=== PATIENT | female | born 1995 | race American Indian/Alaskan Native ===

== ENCOUNTER 2021-05-11 15:53 | Emergency (ER) | payer SELFPAY ==
[2021-05-11] MEDS ORDERED: KETOROLAC 10 MG TAB PO ONE (18:44)
[2021-05-11] MEDS ORDERED: CYCLOBENZAPRINE 10 MG TAB PO ONE (18:45)
[2021-05-11] MEDS ORDERED: predniSONE 20 MG TAB PO ONE (18:45)
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
[2021-05-11 19:44] VITALS: BP 123/80
== END 2021-05-11 19:43 | disposition home or self-care (01) ==
LOC: ED 15:53
DX: M54.50 Low back pain, unspecified (principal); V87.7XXA Person injured in collision between other specified motor vehicles (traffic), initial encounter; Y93.89 Activity, other specified; Y92.89 Other specified places as the place of occurrence of the external cause; Y99.8 Other external cause status
CPT/HCPCS: 99282

== ENCOUNTER 2021-07-07 17:50 | Emergency (ER) | payer SELFPAY ==
[2021-07-07 20:21] LABS: Mucus,Urine 2+ /HPF
[2021-07-07 20:51] LABS: Bilirubin,Urine Negative (Negative); Blood,Urine Negative (Negative); Color,Urine Yellow (Yellow); Protein,Urine <15 mg/dL mg/dL (Negative); Urobilinogen,Urine < 2.0 mg/dL (<2.0)
[2021-07-07] MEDS: LIDOCAINE-MPF (1%) 10 MG/1 ML VIAL 5 ML INFILTRATI ONE (21:43)
[2021-07-07] MEDS: AZITHROMYCIN 250 MG TAB PO ONE (21:43)
--- NOTE | 2021-07-07 21:44 | Emergency Department Report ---
ED Female HPI - General Chief complaint: Urogenital-Female Stated complaint: POSSIBLE STD Time Seen by Provider: 07/07/21 21:11 Source: patient Mode of arrival: Ambulatory Limitations: No Limitations - History of Present Illness Initial comments: 26-year-old F Syrian female who presents with vaginal discharge white thick malodorous times 4 days. Patient is sexually active. States concern for STI. There is no fevers no chills no abdominal pain no nausea no vomiting last menstrual cycle ended yesterday. Patient denies concerns for patient does have a primary care doctor. There is no open sores lesions or MD Complaint: vaginal discharge - Related Data Home Medications Medication Instructions Recorded Confirmed Last Taken Pnv,Calcium 72/Iron,Carb/Folic 1 tab PO DAILY 10/24/13 10/24/13 10/24/13 11:00 [ Plus Iron Tablet] Previous Rx's Medication Instructions Recorded Last Taken Type HYDROcodone/APAP 5-325 [[place] 1 each PO Q6HR PRN #20 tablet 10/26/13 Unknown Rx 5/325] Ibuprofen [Motrin] 800 mg PO TID PRN #60 tablet 10/26/13 Unknown Rx Butalb/Acetamin/Caff 50-325-40 1 tab PO Q6HR PRN #24 tab 03/15/18 Unknown Rx [Fioricet] Cyclobenzaprine [Flexeril] 10 mg PO TID PRN #21 tab 05/11/21 Unknown Rx Naproxen [Naprosyn] 500 mg PO BID #14 tab 05/11/21 Unknown Rx cephALEXin [Keflex] 500 mg PO BID 7 Days #14 cap 07/07/21 Unknown Rx metroNIDAZOLE [Flagyl] 500 mg PO BID 7 Days #14 tab 07/07/21 Unknown Rx Allergies Allergy/AdvReac Type Severity Reaction Status Date / Time No Known Allergies Allergy Verified 05/11/21 18:06 ED Review of Systems ROS: Stated complaint: POSSIBLE STD Other details as noted in HPI Constitutional: denies: chills, fever Eyes: denies: eye pain, eye discharge, vision change ENT: denies: ear pain, throat pain Respiratory: denies: cough, shortness of breath, wheezing Cardiovascular: denies: chest pain, palpitations Endocrine: no symptoms reported Gastrointestinal: denies: abdominal pain, nausea, vomiting, diarrhea Genitourinary: discharge. denies: urgency, dysuria, frequency, hematuria Musculoskeletal: denies: back pain, joint swelling, arthralgia Skin: denies: rash, lesions Neurological: denies: headache, weakness, paresthesias Psychiatric: denies: anxiety, depression Hematological/Lymphatic: denies: easy bleeding, easy bruising ED Past Medical Hx - Past Medical History Hx Hypertension: No Hx Congestive Heart Failure: No Hx Diabetes: No Hx Deep Vein Thrombosis: No Hx Renal Disease: No Hx Sickle Cell Disease: No Hx Seizures: No Hx Asthma: No Hx COPD: No - Social History Smoking Status: Never Smoker Substance Use Type: None - Medications Home Medications: Home Medications Medication Instructions Recorded Confirmed Last Taken Type Pnv,Calcium 72/Iron,Carb/Folic 1 tab PO DAILY 10/24/13 10/24/13 10/24/13 11:00 History [ Plus Iron Tablet] HYDROcodone/APAP 5-325 [[place] 1 each PO Q6HR PRN #20 tablet 10/26/13 Unknown Rx 5/325] Ibuprofen [Motrin] 800 mg PO TID PRN #60 tablet 10/26/13 Unknown Rx Butalb/Acetamin/Caff 50-325-40 1 tab PO Q6HR PRN #24 tab 03/15/18 Unknown Rx [Fioricet] Cyclobenzaprine [Flexeril] 10 mg PO TID PRN #21 tab 05/11/21 Unknown Rx Naproxen [Naprosyn] 500 mg PO BID #14 tab 05/11/21 Unknown Rx cephALEXin [Keflex] 500 mg PO BID 7 Days #14 cap 07/07/21 Unknown Rx metroNIDAZOLE [Flagyl] 500 mg PO BID 7 Days #14 tab 07/07/21 Unknown Rx ED Physical Exam - General Limitations: No Limitations General appearance: alert, in no apparent distress - Head Head exam: Present: atraumatic, normocephalic - Eye Eye exam: Present: normal appearance, EOMI Pupils: Present: normal accommodation - ENT ENT exam: Present: mucous membranes moist - Neck Neck exam: Present: normal inspection, full ROM. Absent: tenderness - Respiratory Respiratory exam: Present: normal lung sounds bilaterally. Absent: respiratory distress, wheezes, stridor - Cardiovascular Cardiovascular Exam: Present: regular rate, normal rhythm, normal heart sounds. Absent: systolic murmur, diastolic murmur, rubs, gallop - GI/Abdominal GI/Abdominal exam: Present: soft, normal bowel sounds. Absent: distended, tenderness, guarding, rebound, rigid, bruit, hernia - Rectal Rectal exam: Present: deferred - External exam: Present: other (Exam deferred by patient) - Extremities Exam Extremities exam: Present: normal inspection, full ROM - Back Exam Back exam: Present: normal inspection, full ROM. Absent: CVA tenderness (R), CVA tenderness (L) - Neurological Exam Neurological exam: Present: alert, oriented X3, CN II-XII intact, normal gait - Psychiatric Psychiatric exam: Present: normal affect, normal mood - Skin Skin exam: Present: warm, dry, intact, normal color. Absent: rash ED Course Vital Signs 07/07/21 19:19 Pulse Rate 83 Blood Pressure 100/75 O2 Sat by Pulse 99 Oximetry ED Medical Decision Making - Lab Data Labs 07/07/21 Unknown Urine Color Yellow Urine Turbidity Cloudy Urine pH 7.0 Ur Specific [place] 1.025 Urine Protein <15 mg/dl Urine Glucose (UA) Negative Urine Ketones Negative Urine Blood Negative Urine Nitrite Neg Ur Reducing Substances Not Reportable Urine Bilirubin Negative Urine Ictotest Not Reportable Urine Urobilinogen < 2.0 Ur Leukocyte Esterase Large Urine WBC (Auto) 9.0 H Urine RBC (Auto) 6.0 U Epithel Cells (Auto) 101.0 H Urine Mucus 2+ - Medical Decision Making Patient treated for presumptive STI, DC to home with prescriptions, patient will follow-up with [facility] . Patient will follow [facility] for HSV HIV screening patient verbalized agreement understanding with discharge plan. Patient DC'd home in stable condition at this time Critical care attestation.: If time is entered above; I have spent that time in minutes in the direct care of this critically ill patient, excluding procedure time. ED Disposition Clinical Impression: UTI (urinary tract infection) Qualifiers: Urinary tract infection type: acute cystitis Hematuria presence: without hematuria Qualified Code(s): N30.00 - Acute cystitis without hematuria Vaginitis Qualifiers: Chronicity: acute Qualified Code(s): N76.0 - Acute vaginitis Disposition: HOME / SELF CARE / HOMELESS Is pt being admited?: No Does the pt Need Aspirin: No Condition: Stable Instructions: Vaginitis, [id number], Urinary Tract Infection, Adult, [id number], Safe Sex Additional Instructions: Take medications as prescribed, do not drink alcohol with Flagyl, follow-up with your doctor in 2 to 3 days. Follow-up with health department for HIV and HSV screening Prescriptions: metroNIDAZOLE [Flagyl] 500 mg PO BID 7 Days #14 tab cephALEXin [Keflex] 500 mg PO BID 7 Days #14 cap Referrals: PEDRO VALADEZ MD [Staff Physician] - 3-5 Days [facility] Dep[facility] [Outside] - 3-5 Days Forms: Work/School Release Form(ED) Time of Disposition: 21:45
[2021-07-07 21:53] VITALS: BP 118/80
== END 2021-07-07 21:53 | disposition home or self-care (01) ==
LOC: ED 17:50
DX: N76.0 Acute vaginitis (principal); N39.0 Urinary tract infection, site not specified; Z79.899 Other long term (current) drug therapy
CPT/HCPCS: 81001; 87086; 96372; 99283; J0696; J3490